=== PATIENT | female | born 1980 | race Caucasian/White ===

== ENCOUNTER 2016-10-15 13:04 | Emergency (ER) | payer MEDICAID ==
[2016-10-15 13:23] VITALS: BMI 26.4
[2016-10-15 13:26] VITALS: TEMP 98.8
[2016-10-15 14:09] LABS: BASO # 0.02 K/mm3 (0.0-2.0); BASO % 0.3 % (0.0-3.0); EOS # 0.3 (0.0-0.7); EOS % 4.5 % (1.5-5.0); GRAN # 4.13 (1.4-6.5); LYMPH # 2.4 (1.2-3.4); LYMPH % 32.1 % (22.0-35.0); MEAN CELL VOLUME 83.1 fL (80.0-105.0); MEAN CORPUSCULAR HEMOGLOBIN 28.8 pg (25.0-35.0); MEAN CORPUSCULAR HGB CONC 34.7 g/dl (31.0-37.0); MEAN PLATELET VOLUME 10.2 fl (7.0-11.0); MONO # 0.5 (0.1-0.6); MONO % 7.1 % (1.0-6.0); PLATELET COUNT 277 10^3/uL (120.0-450.0); RBC 4.86 10^6/uL (3.5-6.1); RED CELL DISTRIBUTION WIDTH 12.8 % (11.5-14.5); WHITE BLOOD COUNT 7.4 10^3/ul (4.5-11.0)
[2016-10-15 14:10] LABS: ALB/GLOB RATIO 1.2 (1.1-1.8); ALBUMIN 4.7 g/dL (3.0-4.8); ALT/SGPT 24 U/L (7-56); AST/SGOT 20 U/L (15-39); BLOOD UREA NITROGEN 11 mg/dL (7-21); CALCIUM 9.8 mg/dL (8.4-10.5); GFR AFRICAN-AMERICAN > 60; GFR NON-AFRICAN AMERICAN > 60
[2016-10-15] MEDS ORDERED: Tmp-Smz 800 mg-160 mg DS Tab PO STA (14:14)
--- NOTE | 2016-10-15 14:38 | ED PDOC ---
Arrival/HPI - General Chief Complaint: Lower Extremity Problem/Injury Time Seen by Provider: 10/15/16 13:51 Historian: Patient - History of Present Illness Narrative History of Present Illness (Text): 10/15/16 14:33 36-year-old female presents today with pain swelling and erythema to the left foot over the past 2 days. Patient states last week she was feeling some pruritus between the fourth and fifth toes. Patient states 2 days ago she noticed a blister forming in the web spacing between the fourth and fifth toes with swelling and erythema to the dorsal aspect of the foot.. Patient states yesterday she stuck a needle into the blister thinking that the swelling and erythema would go away after the blister was popped. Patient states she still has pain and swelling and erythema to the foot. Denies fevers or chills. Denies numbness weakness or tingling in the extremity. Denies history of diabetes. Denies any trauma or injury. No other complaints Time/Duration: Other (2 days) Symptom Onset: Gradual Symptom Course: Worsening Quality: Aching Severity Level: Mild Past Medical History - Provider Review Nursing Documentation Reviewed: Yes - Travel History Have you recently traveled outside [place] w/in the past 3 mons?: No - Infectious Disease Hx of Infectious Diseases: None - Tetanus Immunization Tetanus Immunization: Unknown - Psychiatric Hx Depression: No Hx Emotional Abuse: No Hx Physical Abuse: No Hx Substance Use: No - Surgical History Hx Tonsillectomy: Yes - Anesthesia Hx Anesthesia: No - Suicidal Assessment Feels Threatened In Home Enviroment: No Family/Social History - Physician Review Nursing Documentation Reviewed: Yes Family/Social History: Unknown Family HX Smoking Status: Current Some Days Smoker Hx Alcohol Use: Yes Frequency of alcohol use: Socially Hx Substance Use: No Allergies/Home Meds Allergies/Adverse Reactions: Allergies No Known Allergies Allergy (Verified 03/11/13 22:16) Home Medications: Home Meds Medication Instructions Recorded Confirmed Albuterol HFA [Ventolin HFA 90 1 puff IH QID PRN 10/15/16 10/15/16 mcg/actuation (8 g)] Fluticasone/Salmeterol [Advair 1 puff IH DAILY 10/15/16 10/15/16 250-50 Diskus] Loratadine [Claritin] 1 tab PO DAILY 10/15/16 10/15/16 Norethindrone-E.estradiol-Iron 1 tab PO DAILY 10/15/16 10/15/16 [Taytulla 1 mg-20 Mcg Capsule] Review of Systems - Review of Systems Constitutional: absent: Fatigue, Fevers Respiratory: absent: SOB, Cough Cardiovascular: absent: Chest Pain, Palpitations Gastrointestinal: absent: Abdominal Pain, Diarrhea, Nausea, Vomiting Genitourinary Female: absent: Dysuria Musculoskeletal: Arthralgias Skin: Pruritis, Cellulitis Neurological: absent: Headache, Dizziness Psychiatric: absent: Anxiety, Depression Physical Exam Vital Signs Reviewed: Yes Vital Signs Temp Pulse Resp BP Pulse Ox 10/15/16 15:03 74 16 119/81 99 10/15/16 13:26 98.8 F 84 18 111/7 L 97 Temperature: Afebrile Blood Pressure: Normal Pulse: Regular Respiratory Rate: Normal Appearance: Positive for: Well-Appearing, Non-Toxic, Comfortable Pain Distress: None Mental Status: Positive for: Alert and Oriented X 3 - Systems Exam Head: Present: Atraumatic Respiratory/Chest: Present: Clear to Auscultation Cardiovascular: Present: Regular Rate and Rhythm Upper Extremity: Present: Normal Inspection Lower Extremity: Present: NORMAL PULSES, Tenderness (left foot; there is erythema and edema and warmth noted to the dorsal aspect of the left foot; + small fluid filled blister noted between the webspacing of the 4th and 5th toes; full rom of foot, minimal tenderness; no crepitus. ), Swelling, Erythema, Neurovascularly Intact, Capillary Refill < 2 s. No: CALF TENDERNESS, Deformity Neurological: Present: GCS=15 Skin: Present: Warm, Dry, Normal Color Psychiatric: Present: Alert, Oriented x 3 Medical Decision Making ED Course and Treatment: 10/15/16 14:36 36-year-old female with a 2 day history of pain swelling and erythema to the left foot. CBC within normal limits CMP within normal limits Blood cultures pending X-rays of the left foot: No fracture no foreign body. Patient given Bactrim and Keflex by mouth We will discharge the patient home with a trial of by mouth antibiotics as the patient is otherwise healthy. Advised follow-up with primary care physician within the next 2 days. Advised taking Bactrim and Keflex as prescribed. Advised immediately return if symptoms worsen or persist or if new concerning symptoms develop, and high fevers, increasing pain, increasing redness, increasing swelling, purulent discharge. Patient was advised to return to the emergency room if there is no improvement within the next 2 days. Patient verbalizes understanding of discharge instructions and need for immediate followup. all aspects of this case were discussed the attending of record. Impression: Cellulitis, foot, blister, foot Motrin every 6 hours as needed for pain Bactrim 1 tablet twice daily 7 days Keflex 1 capsule 4 times daily 7 days Follow-up primary care physician within the next 2 days Follow-up with a gear design engineer within the next 2 days Return immediately if symptoms worsen or persist or if new symptoms develop, high fevers, increasing pain, increasing swelling, purulent discharge Return immediately if any other concerning symptoms develop - Lab Interpretations Lab Results: 10/15/16 13:25 10/15/16 13:25 Lab Results 10/15/16 13:25: WBC 7.4, RBC 4.86, Hgb 14.0, Hct 40.4, MCV 83.1, MCH 28.8, MCHC 34.7, RDW 12.8, Plt Count 277, MPV 10.2, Gran % 56.0, Lymph % (Auto) 32.1, [place] % (Auto) 7.1 H, Eos % (Auto) 4.5, Baso % (Auto) 0.3, Gran # 4.13, Lymph # 2.4, [place] # 0.5, Eos # 0.3, Baso # 0.02 10/15/16 13:25: Sodium 141, Potassium 4.5, Chloride 101, Carbon Dioxide 26, Anion Gap 19, BUN 11, Creatinine 0.7, Est GFR ( Amer) > 60, Est GFR (Non- Af Amer) > 60, Random Glucose 100, Calcium 9.8, Total Bilirubin 0.5, AST 20, ALT 24, Alkaline Phosphatase 61, Total Protein 8.6 H, Albumin 4.7, Globulin 3.9 , Albumin/Globulin Ratio 1.2 - RAD Interpretation Radiology Orders: 10/15/16 13:52 FOOT LEFT 3 VIEWS ROUTINE [RAD] Stat - Medication Orders Current Medication Orders: Discontinued Medications Cephalexin Monohydrate (Keflex) 500 mg PO STAT STA PRN Reason: Protocol Stop: 10/15/16 14:15 Last Admin: 10/15/16 15:02 Dose: 500 mg Trimethoprim/Sulfamethoxazole (Bactrim Ds Tab) 1 tab PO STAT STA PRN Reason: Protocol Stop: 10/15/16 14:15 Last Admin: 10/15/16 15:02 Dose: 1 tab Disposition/Present on Arrival - Present on Arrival Any Indicators Present on Arrival: No History of DVT/PE: No History of Uncontrolled Diabetes: No Urinary Catheter: No History of Decub. Ulcer: No History Surgical Site Infection Following: None - Disposition Have Diagnosis and Disposition been Completed?: Yes Diagnosis: Cellulitis of foot, Blister of foot Disposition: HOME/ ROUTINE Disposition Time: 14:38 Patient Plan: Discharge Patient Problems: Current Active Problems Problem Status Onset Blister of foot Acute Cellulitis of foot Acute Condition: GOOD Discharge Instructions (ExitCare): Cellulitis (ED) Additional Instructions: Motrin every 6 hours as needed for pain Bactrim 1 tablet twice daily 7 days Keflex 1 capsule 4 times daily 7 days Follow-up primary care physician within the next 2 days Follow-up with a gear design engineer within the next 2 days Return immediately if symptoms worsen or persist or if new symptoms develop, high fevers, increasing pain, increasing swelling, purulent discharge Return immediately if any other concerning symptoms develop Prescriptions: Cephalexin [Keflex] 500 mg PO QID #28 capsule Ibuprofen [Motrin] 600 mg PO Q6H PRN #20 tab PRN Reason: pain/fever reduction Sulfamethoxazole/Trimethoprim [Bactrim DS 800 mg-160 mg] 1 tab PO BID #14 tab Referrals: Loco Adams DPM [Staff Provider] - Follow up with primary Podiatry [facility] [Outside] - Follow up with primary Cecilia Martino MD [Staff Provider] - Follow up with primary Forms: WORK NOTE
[2016-10-15 15:03] VITALS: BP 119/81; PULSE 74; O2SAT 99
[2016-10-15 15:35] VITALS: RESP 18
--- NOTE | 2016-10-15 16:18 | RAD ---
PROCEDURE: Left Foot Radiographs. HISTORY: cellulitis/pain/swelling/erythema COMPARISON: None. FINDINGS: BONES: No fracture. No osseous erosion or periosteal reaction appreciated. Incidentally noted navicular accessory ossicle, os naviculare. JOINTS: Normal. SOFT TISSUES: Normal. OTHER FINDINGS: None. IMPRESSION: No radiographic evidence of osteomyelitis.
== END 2016-10-15 15:35 | disposition home or self-care (01) ==
LOC: ED 13:04
DX: L03.116 Cellulitis of left lower limb (principal); S90.822A Blister (nonthermal), left foot, initial encounter; X58.XXXA Exposure to other specified factors, initial encounter